=== PATIENT | male | born 1940 | race Caucasian/White ===

== ENCOUNTER 2021-12-02 17:19 | Inpatient (IN) | payer OTHER ==
[~2021-12-02] VITALS: Ht 175.3 cm; Wt 88.6 kg
[~2021-12-02 17:19] MED LIST: ADVAIR 500-501 EACH INH; ASPIRIN EC81 MG PO; ASPIRIN325 MG PO; CARTIA XT120 MG PO; COLCRYS0.6 MG PO; COUMADIN7.5 MG PO; DIGITEK250 MCG PO; DUONEB 2.5-0.5M1 AMP INH; FLOMAX0.4 MG PO; GABAPENTIN300 MG PO; HUMALOG100 UNIT/3 SC; JANUMET 50-1,01 EACH PO; JANUMET XR 50-1 EACH PO; LASIX40 MG PO; LEVAQUIN750 MG PO; LEVOTHYROXINE75 MC1 PO; LIPITOR20 MG PO; LOPRESSOR25 MG PO; LYRICA 50MG CAP50 MG PO; NEURONTIN300 MG PO; PEPCID AC20 MG PO; PREDNISONE 20MG20 MG PO; PROAIR HFA8.5 GM INH; PROVENTIL HFA6.7 GM INH; SINGULAIR10 MG PO; TRAZODONE 50MG50 MG PO; ULTRAM50 MG PO; VENTOLIN (2.5 MG/3 M INH; VITAMIN B-121000 MC1 IM; ZYRTEC10 M3 PO
[2021-12-02] MEDS ORDERED: OZEMPIC1 MG/0.71 SC (17:45)
[2021-12-02] MEDS ORDERED: TRAZODONE HCL150 MG PO (17:46)
[2021-12-02] MEDS ORDERED: ZYRTEC10 M3 PO ×2 (17:47→17:54)
[2021-12-02] MEDS ORDERED: LIPITOR20 MG PO (17:47)
[2021-12-02] MEDS ORDERED: VITAMIN B-121000 MC1 PO (17:48)
[2021-12-02] MEDS ORDERED: LYRICA 50MG CAP50 MG PO (17:50)
[2021-12-02] MEDS ORDERED: POLY-IRON150 MG PO (17:51)
[2021-12-02] MEDS ORDERED: CARDIZEM CD240 MG PO (17:52)
[2021-12-02] MEDS ORDERED: ELIQUIS5 MG PO (17:52)
[2021-12-02] MEDS ORDERED: ASPIRIN EC81 MG PO (17:53)
[2021-12-02] MEDS ORDERED: PRISTIQ50 MG PO (17:55)
[2021-12-02] MEDS ORDERED: ALDACTONE25 MG PO (17:55)
[2021-12-02] MEDS ORDERED: PROTONIX 40MG T40 MG PO (17:55)
[2021-12-02] MEDS ORDERED: FARXIGA10 MG PO (17:57)
[2021-12-02] MEDS ORDERED: ADVAIR 500-501 EACH INH (17:58)
[2021-12-02] MEDS ORDERED: SYNTHROID75 MCG PO (17:58)
[2021-12-02] MEDS ORDERED: ULTRAM50 MG PO (17:59)
[2021-12-02 19:00] LABS: BASOPHIL 0.7 % (0-2); EOSINOPHIL 5.9 % (0-7); HCT 31.4 % (42.0-52.0); HGB 9.6 g/dl (13.2-18.0); LYMPHOCYTE 23.9 % (15-48); MCH 25.4 pg (25.0-31.0); MCHC 30.6 g/dL (32.0-36.0); MCV 83.1 fL (78.0-100.0); MONOCYTE 16.1 % (0-12); MPV 11.1 fL (6.0-9.5); NEUTROPHIL 52.9 % (41-80); NRBC 0; PLT 196 K/uL (150-400); RBC 3.78 M/uL (4.70-6.00); RDW 16.5 % (11.5-14.0); WBC 7.4 K/uL (4.0-10.5)
[2021-12-02 20:44] LABS: ALBUMIN 2.7 g/dL (3.4-5.0); BILIRUBIN - TOTAL 0.4 mg/dL (0.2-1.0); BUN/CREAT RATIO (CALC) 19.4 RATIO; CREATININE 1.29 mg/dL (0.67-1.17); GLOBULIN (CALCULATION) 4.5 g/dL; POTASSIUM 4.5 mmol/L (3.5-5.1); TOTAL PROTEIN 7.2 g/dL (6.4-8.2)
[2021-12-03 06:23] LABS: BASOPHIL 0.5 % (0-2); EOSINOPHIL 9.9 % (0-7); HCT 33.5 % (42.0-52.0); HGB 10.1 g/dl (13.2-18.0); LYMPHOCYTE 25.4 % (15-48); MCH 25.3 pg (25.0-31.0); MCHC 30.1 g/dL (32.0-36.0); MPV 11.6 fL (6.0-9.5); NEUTROPHIL 49.8 % (41-80); NRBC 0; PLT 210 K/uL (150-400); RBC 3.99 M/uL (4.70-6.00); RDW 16.5 % (11.5-14.0); WBC 7.6 K/uL (4.0-10.5)
[2021-12-03 07:03] LABS: ALBUMIN 2.7 g/dL (3.4-5.0); BILIRUBIN - TOTAL 0.3 mg/dL (0.2-1.0); BUN/CREAT RATIO (CALC) 16.9 RATIO; CREATININE 1.24 mg/dL (0.67-1.17); GLOBULIN (CALCULATION) 4.6 g/dL; MAGNESIUM 2.1 mg/dL (1.8-2.4); PHOSPHORUS 4.6 mg/dL (2.6-4.7); POTASSIUM 4.5 mmol/L (3.5-5.1); TOTAL PROTEIN 7.3 g/dL (6.4-8.2)
[2021-12-04 06:27] LABS: BASOPHIL 0.8 % (0-2); EOSINOPHIL 6.8 % (0-7); HCT 30.7 % (42.0-52.0); HGB 9.3 g/dl (13.2-18.0); LYMPHOCYTE 20.6 % (15-48); MCH 25.2 pg (25.0-31.0); MCHC 30.3 g/dL (32.0-36.0); MCV 83.2 fL (78.0-100.0); MONOCYTE 11.3 % (0-12); MPV 11.4 fL (6.0-9.5); NEUTROPHIL 59.8 % (41-80); NRBC 0; PLT 200 K/uL (150-400); RBC 3.69 M/uL (4.70-6.00); RDW 16.3 % (11.5-14.0); WBC 7.6 K/uL (4.0-10.5)
[2021-12-04 06:42] LABS: BUN/CREAT RATIO (CALC) 13.6 RATIO; CREATININE 1.18 mg/dL (0.67-1.17); POTASSIUM 4.6 mmol/L (3.5-5.1)
--- NOTE | 2021-12-04 22:22 | NUR ---
Patients daughter has brought patients personal walker from home for when he is ready to be discharged. Patients walker has wheels on the front and tennis balls on the back.
[2021-12-06 07:01] LABS: BASOPHIL 0.9 % (0-2); EOSINOPHIL 5.5 % (0-7); HCT 29.6 % (42.0-52.0); MCH 25.3 pg (25.0-31.0); MCHC 30.4 g/dL (32.0-36.0); MCV 83.1 fL (78.0-100.0); MPV 11.9 fL (6.0-9.5); NEUTROPHIL 63.2 % (41-80); NRBC 0; PLT 224 K/uL (150-400); RBC 3.56 M/uL (4.70-6.00); RDW 16.2 % (11.5-14.0); WBC 9.4 K/uL (4.0-10.5)
[2021-12-06 07:14] LABS: BUN/CREAT RATIO (CALC) 16.5 RATIO; C-REACTIVE PROTEIN 1.5 mg/dL (<=0.90); CREATININE 1.15 mg/dL (0.67-1.17); POTASSIUM 4.9 mmol/L (3.5-5.1)
[2021-12-06] MEDS ORDERED: CIPRO500 MG PO (14:17)
== END 2021-12-06 17:15 | disposition home or self-care (01) | DRG 445 ==
LOC: FMS 17:19
PROVIDERS: Nurse Practitioner; ADMIT Internal Medicine
DX: K81.0 Acute cholecystitis (principal); R78.81 Bacteremia; B96.89 Other specified bacterial agents as the cause of diseases classified elsewhere; Z20.822 Contact with and (suspected) exposure to COVID-19; I48.91 Unspecified atrial fibrillation; J44.9 Chronic obstructive pulmonary disease, unspecified; E11.22 Type 2 diabetes mellitus with diabetic chronic kidney disease; N18.2 Chronic kidney disease, stage 2 (mild); G47.33 Obstructive sleep apnea (adult) (pediatric); Z79.899 Other long term (current) drug therapy; Z79.82 Long term (current) use of aspirin; Z95.0 Presence of cardiac pacemaker; Z95.2 Presence of prosthetic heart valve; Z98.890 Other specified postprocedural states; Z88.5 Allergy status to narcotic agent; Z88.8 Allergy status to other drugs, medicaments and biological substances; Z91.040 Latex allergy status
CPT/HCPCS: 36415; 80048; 80053; 82962; 83605; 83615; 83735; 84100; 84145; 85025; 86140; 87040; 94640; 94660; J0692; J0744; U0002